=== PATIENT | male | born 1955 | race Caucasian/White ===

== ENCOUNTER 2017-10-20 06:37 | Day surgery (SDC) | payer BC ==
[2017-10-13 12:15] VITALS: BMI 22.0
[2017-10-20 07:20] VITALS: O2SAT 100
[2017-10-20] MEDS ORDERED: Propofol 10 mg/ml Inj (20 ML) ONE ×3 (08:04→08:46)
[2017-10-20] MEDS ORDERED: Lidocaine 1% Inj (20ml) ONE (08:05)
[2017-10-20] MEDS ORDERED: Sodium Chloride 0.9% 1,000 ML IV SCH (09:15)
[2017-10-20 10:48] VITALS: BP 134/78; PULSE 54; RESP 16; TEMP 97.5
== END 2017-10-20 10:30 | disposition home or self-care (01) ==
LOC: ENDO 06:37
PROVIDERS: ATTEND Internal Medicine Gastroenterology
DX: Z12.11 Encounter for screening for malignant neoplasm of colon (principal); D12.5 Benign neoplasm of sigmoid colon; D12.3 Benign neoplasm of transverse colon; K64.1 Second degree hemorrhoids; I10 Essential (primary) hypertension; E78.5 Hyperlipidemia, unspecified; Z80.1 Family history of malignant neoplasm of trachea, bronchus and lung; Z87.891 Personal history of nicotine dependence
CPT/HCPCS: 45385; 88305; J2704; J7040